=== PATIENT | male | born 1955 | race Caucasian/White ===

== ENCOUNTER → 2018-03-30 08:40 | Outpatient (CLI) | payer BC | END | disposition home or self-care (01) | LOC: D.HCCARDIO 03-23 11:00 | DX: I25.10 Atherosclerotic heart disease of native coronary artery without angina pectoris (principal) ==

== ENCOUNTER → 2018-08-07 20:27 | Outpatient (CLI) | payer BC | END | disposition home or self-care (01) | LOC: D.LABREF 20:27 | PROVIDERS: ATTEND Urology | DX: R31.9 Hematuria, unspecified (principal) ==